=== PATIENT | male | born 1995 | race Caucasian/White ===

== ENCOUNTER 2017-12-04 09:21 | Emergency (ER) | payer OTHER ==
[2017-12-04] MEDS: IBUPROFEN 800 MG TAB PO (10:15)
== END 2017-12-04 10:24 | disposition home or self-care (01) ==
LOC: M ED 09:21
DX: R07.89 Other chest pain (principal); F17.210 Nicotine dependence, cigarettes, uncomplicated
CPT/HCPCS: 71101